=== PATIENT | female | born 1970 | race Asian ===

== ENCOUNTER 2023-05-21 14:59 | Emergency (ER) | payer OTHER, SELFPAY ==
[2023-05-21 15:04] VITALS: BP 160/96
[2023-05-21 15:23] LABS: Urine Albumin Trace (Neg - Trace); Urine Bilirubin Negative (Negative); Urine Character Clear (Clear); Urine Color Yellow; Urine Glucose Negative (Negative); Urine Ketone Negative (Negative); Urine Leukocyte 2+ (Negative); Urine Nitrite Negative (Negative); Urine Occult Blood 3+ (Negative); Urine Specific Gravity 1.025 (<1.030); Urine Urobilinogen Negative (Neg - 1+)
[2023-05-21 16:21] VITALS: BMI 25.0
[2023-05-21 16:22] VITALS: BP 139/90
--- NOTE | 2023-05-21 16:40 | ED.GENMED ---
History of Present Illness
General
Chief Complaint: Depression
Time Seen by Provider: 05/21/23 16:25
Travel History
Have you had any contact with someone who has COVID-19?: No
Do you have any symptoms of coronavirus? Fever > 100 degrees, chills, cough, shortness of breath, sore throat, loss of taste or smell, muscle aches, or headache?: No
History of Present Illness
History of Present Illness:
53-year-old female with history of hypertension and hyperlipidemia as well as depression presents to the emergency department for evaluation of worsening depression and insomnia. She states to me that she has been on fluoxetine for quite some time
but feels as though her depression symptoms are worsening. She denies any suicidal ideation or homicidal ideation. She states to me that she has 'bladder pain' and this is how her previous diagnosis of depression was living. She states she does
not have a UTI simply 'bladder pain.' She is not able to elaborate on this any further. She has never seen a urologist for these episodes. She reports that she would like a prescription for trazodone as this has helped her with sleep in the past.
Denies any visual or auditory hallucinations. Does not wish to speak to crisis
Past History
Past History
ED Past Medical History: HTN and Hypercholesterolemia
Social History
Tobacco: Non-smoker
Alcohol: None
Drug: None
Personal:
Living: with family
Review of Systems
Review of Systems
Allergies reviewed?: Yes
All Other Systems: ROS reviewed and negative except as documented in HPI and ROS
Phy Exam
Physical Exam
Physical Exam:
GEN: Well appearing, NAD, WDWN
HEENT: Oral mucosa moist, no scleral icterus
Cardiac: Regular rate
Lung: No respiratory distress, no tachypnea
MSK: No gross deformity or injuries
Skin: Good color, no pallor or jaundice, no rashes
Neuro: AO x3, moves all extremities freely
Psych: Calm, cooperative
Course
Orders/Labs/Results
Orders:
Orders
05/21/23 15:13
Urinalysis Reflex To Culture Urgent
Date Specimen was Collected: 05/21/23
Time Specimen was Collected: 15:08
Urine Microscopic Reflex Cult Urgent
Urine Culture Urgent
SERG Source: U
Specimen Description:
Date Specimen was Collected: 05/21/23
Time Specimen was Collected: 15:08
05/21/23 16:10
Crisis Consult Urgent
Reason for Consult: depression, wishes to speak with someone
05/21/23 17:46
Trazodone [Desyrel] 100 mg PO NOW STA
Abnormal Lab Results
05/21/23
15:13
Ur Occult Blood Reflex 3+ A
(Negative)
Leukocyte Esterase Rfl 2+ A
(Negative)
Urine RBC 7-10 A /HPF
(0-2)
Vital Signs
Initial and Last Documented VS:
Initial Vital Signs
Temp Pulse Resp BP Pulse Ox
98.5 F 87 18 160/96 98
05/21/23 15:04 05/21/23 15:04 05/21/23 15:04 05/21/23 15:04 05/21/23 15:04
Last Documented Vital Signs
Temp Pulse Resp BP Pulse Ox
98.5 F 87 18 139/90 99
05/21/23 15:04 05/21/23 15:04 05/21/23 15:04 05/21/23 16:22 05/21/23 16:23
MDM/Problems Addressed
MDM/Problems Addressed:
Patient declined crisis services. She has no SI or HI at this time that would warrant involuntary commission. Will provide her with a short prescription for trazodone urged her to seek outpatient primary care or psychiatric evaluation given her
worsening depression symptoms although I do not feel she is an unsafe discharge at this time
*Critical Care Note
Total Time (30-74mins, 75-104mins- exclusive of procedures): Not Applicable
ED Attending Note
-
Portions of this chart may have been created with voice recognition software.� Occasional wrong word or��sound alike� substitutions may have occurred due to the inherent limitations of voice recognition software.
Discharge Plan
Departure
Patient Disposition: Home (Routine Discharge)
Date of Disposition: 05/21/23
Time of Disposition: 17:37
Patient with high blood pressure during this ER visit?: No
Discharge Problem:
Depression, Insomnia
Instructions: Depression, Adult (DC)
Prescriptions:
New
trazodone 100 mg tablet
100 mg PO HS PRN (Reason: insomnia) Qty: 20 0RF
Referrals:
John Grady MD [Active] -
Rosie Kaufman PA-C [Family Provider] -
Activity Restrictions/Additional Instructions:
Please return if your symptoms worsen
Follow up with the listed urologist to discuss why you have blood in your urine
Interventions
Interventions:
*Risk Screen - Suicide Last Done: 05/21/23 15:04
*General Assessment Last Done: 05/21/23 15:04
*Neglect/Abuse Screening Last Done: 05/21/23 15:04
ED- Fall Risk Assessment Last Done: 05/21/23 16:21
*ED COVID-19 Vaccine History Last Done: 05/21/23 15:04
*Nursing Disposition Last Done: 05/21/23 18:01
ED-Psychological Assessment Last Done: 05/21/23 16:21
Discharge Date and Time
Discharge Date/Time: 05/21/23 18:02
[2023-05-21] MEDS: DESYREL 100 MG PO (18:00)
== END 2023-05-21 18:02 | disposition home or self-care (01) ==
LOC: EMR 14:59
PROVIDERS: EMERGENCY PHYSICIAN Emergency Medicine; FAMILY PHYSICIAN Family Medicine
DX: F32.A Depression, unspecified (principal); G47.00 Insomnia, unspecified; R39.89 Other symptoms and signs involving the genitourinary system; I10 Essential (primary) hypertension; E78.00 Pure hypercholesterolemia, unspecified; Z87.440 Personal history of urinary (tract) infections; Z88.0 Allergy status to penicillin
CPT/HCPCS: 99283; 81003; 81015; 87086

== ENCOUNTER 2025-01-27 17:19 | Emergency (ER) | payer OTHER, SELFPAY ==
[2025-01-27 17:23] VITALS: BP 152/104
--- NOTE | 2025-01-27 19:47 | ED.SKININJ ---
HPI-Injury
General
Chief Complaint: Bite
Time Seen by Provider: 01/27/25 19:07
History of Present Illness-Injury
Initial Injury comments:
Patient is a 54-year-old woman presenting to the emergency department after being bit by a cat. Patient states that she is watching her neighbors cat. The cat is unvaccinated. She is unsure if the cat bit her or scratched her at her left wrist.
Bleeding has been controlled. She denies any trauma elsewhere. No numbness tingling. No weakness. Patient is unsure when her last tetanus was. She is allergic to penicillin
Past History
Past History
ED Past Medical History: HTN and Hypercholesterolemia
Social History
Tobacco: Non-smoker
Alcohol: None
Drug: None
Personal:
Living: with family
Phy Exam
Physical Exam
Physical Exam:
GENERAL: in no acute distress
HEENT: normocephalic, extraocular movements intact, moist oral mucosa
NECK: normal inspection
RESPIRATORY: no respiratory distress
CARDIOVASCULAR: regular rate and rhythm
EXTREMITIES: Left wrist with very superficial scratch about 3 cm long at the palmar aspect of the wrist
NEUROLOGIC: awake and alert, moves all extremities
SKIN: warm
Course
Orders/Labs/Results
Orders:
Orders
01/27/25 19:34
Tetanus/Diphth/Acelpertussis [Adacel] 0.5 ml IM .ONCE ONE
01/27/25 19:35
Doxycycline [Vibramycin] 100 mg PO NOW STA
01/27/25 19:37
Rabies Vaccine (Pcec)/Pf [Rabavert Rabies Vacc W-Diluent] 2.5 unit IM .ONCE ONE
01/27/25 19:41
Rabies Immune Globulin/Pf [HyperRAB] 1,336 unit IM NOW STA
Vital Signs
Initial and Last Documented VS:
Initial Vital Signs
Temp Pulse Resp BP Pulse Ox
98.4 F 85 16 152/104 99
01/27/25 17:23 01/27/25 17:23 01/27/25 17:23 01/27/25 17:23 01/27/25 17:23
Last Documented Vital Signs
Temp Pulse Resp BP Pulse Ox
98.4 F 85 16 152/104 99
01/27/25 17:23 01/27/25 17:23 01/27/25 17:23 01/27/25 17:23 01/27/25 17:23
MDM/Problems Addressed
Differential Diagnosis Includes:
Patient is a 54-year-old woman presenting to the emergency department after being possibly bitten versus scratched by a cat. On arrival vitals are notable for hypertension and exam does show a small superficial cut to the left wrist. No
subcutaneous or deep tissue involvement. She does have full range of motion of the wrist and the hand. After a long discussion patient would prefer to be treated for rabies postexposure prophylaxis. Will also update tetanus. Will give
antibiotics and give first dose here. Strict return precautions given.
*Pulse Oximetry
SaO2: 99
Oxygen Mode of Delivery: Room air
Patient hypoxic: no
*Critical Care Note
Total Time (30-74mins, 75-104mins- exclusive of procedures): Not Applicable
ED Attending Note
-
Portions of this chart may have been created with voice recognition software.� Occasional wrong word or��sound alike� substitutions may have occurred due to the inherent limitations of voice recognition software.
Discharge Plan
Departure
Patient Disposition: Home (Routine Discharge)
Date of Disposition: 01/27/25
Time of Disposition: 19:44
Patient with high blood pressure during this ER visit?: No
Discharge Problem:
Cat bite
Instructions: Animal Bites (DC)
Prescriptions:
New
doxycycline hyclate 100 mg capsule
100 mg PO BID 10 Days Qty: 20 0RF
No Action
trazodone 100 mg tablet
100 mg PO HS PRN (Reason: insomnia) Qty: 20 0RF
Stand Alone Forms: Rabies Vaccine Post Exp Dosing
Activity Restrictions/Additional Instructions:
Go to infusion center on days 3,7,14 for your rabies vaccine
take the antibiotics as prescribed
We would like for you to follow up with your primary care physician for further evaluation. If you experience fever, worsening of your symptoms, or develop any other new or concerning symptoms, please return to the Emergency Department immediately.
Please see the attached sheet for additional information.
Interventions
Interventions:
*Risk Screen - Suicide Last Done: 01/27/25 17:23
*General Assessment Last Done: 01/27/25 17:23
*Neglect/Abuse Screening Last Done: 01/27/25 17:23
*ED COVID-19 Vaccine History Last Done: 01/27/25 17:23
*ED Influenza Vaccine History Last Done: 01/27/25 17:23
ED-Skin Assessment Last Done: 01/27/25 19:15
Discharge Date and Time
Print Language: [place]
[2025-01-27] MEDS: VIBRAMYCIN 100 MG PO (19:48)
[2025-01-27] MEDS: ADACEL 0.5 ML IM (19:49)
[2025-01-27] MEDS: RABAVERT RABIES VACC W-DILUENT 2.5 UNIT IM (20:09)
== END 2025-01-27 20:33 | disposition home or self-care (01) ==
LOC: EMR 17:19
PROVIDERS: EMERGENCY PHYSICIAN Student in an Organized Health Care Education/Training Program; FAMILY PHYSICIAN Family Medicine
DX: S60.812A Abrasion of left wrist, initial encounter (principal); W55.01XA Bitten by cat, initial encounter; Z23 Encounter for immunization; I10 Essential (primary) hypertension; E78.00 Pure hypercholesterolemia, unspecified; Z88.0 Allergy status to penicillin
CPT/HCPCS: 99284; 90471; 96372; 90375; 90675; 90715

== ENCOUNTER 2025-01-30 15:18 | Outpatient (RCR) | payer OTHER, SELFPAY ==
[2025-01-30 15:15] VITALS: BP 146/94
[2025-01-30] MEDS: RABAVERT RABIES VACC W-DILUENT 2.5 UNIT IM (15:48)
== END 2025-01-31 09:14 | disposition home or self-care (01) ==
LOC: OID 15:18
PROVIDERS: ATTENDING PHYSICIAN Student in an Organized Health Care Education/Training Program
DX: Z20.3 Contact with and (suspected) exposure to rabies (principal); Z23 Encounter for immunization
CPT/HCPCS: 90471; 90675

== ENCOUNTER 2025-02-10 15:18 | Outpatient (RCR) | payer OTHER, SELFPAY ==
[2025-02-03 16:15] VITALS: BP 144/92
[2025-02-03] MEDS: RABAVERT RABIES VACC W-DILUENT 2.5 UNIT IM (16:19)
[2025-02-10 15:22] VITALS: BP 144/86
[2025-02-10] MEDS: RABAVERT RABIES VACC W-DILUENT 2.5 UNIT IM (15:31)
== END 2025-02-11 09:41 | disposition home or self-care (01) ==
LOC: OID 15:18
PROVIDERS: ATTENDING PHYSICIAN Student in an Organized Health Care Education/Training Program
DX: Z20.3 Contact with and (suspected) exposure to rabies (principal); Z23 Encounter for immunization
CPT/HCPCS: 90471; 90675